=== PATIENT | female | born 1960 | race Asian ===

== ENCOUNTER 2017-11-18 08:58 | Emergency (ER) | payer OTHER ==
[~2017-11-18] VITALS: Ht 167.6 cm; Wt 65.8 kg
[2017-11-18 10:07] LABS: PLATELET COUNT 279 K/uL (152-353)
[2017-11-18 10:16] LABS: POTASSIUM 3.5 mmol/L (3.6-5.2)
[2017-11-18 11:00] VITALS: TEMP 99.1
[2017-11-18 13:06] VITALS: BP 113/78
== END 2017-11-18 13:06 | disposition home or self-care (01) ==
LOC: ED 08:58
PROVIDERS: Emergency Medicine
DX: J40 Bronchitis, not specified as acute or chronic (principal); R50.9 Fever, unspecified; R41.0 Disorientation, unspecified
CPT/HCPCS: 36415; 80053; 80307; 81000; 85027; 87804; 96372; 99284; G0479; J1885

== ENCOUNTER 2022-04-01 08:40 | Outpatient (CLI) | payer OTHER | END 2022-04-01 18:54 | disposition home or self-care (01) | LOC: MRI 08:40 | PROVIDERS: ATTEND Internal Medicine | DX: M54.2 Cervicalgia (principal); R20.2 Paresthesia of skin ==